=== PATIENT | male | born 1940 | race Asian ===

== ENCOUNTER 2019-02-16 14:25 | Inpatient (IN) | payer OTHER, MEDICARE ==
[~2019-02-16] VITALS: Ht 170.2 cm; Wt 68.5 kg
[2019-02-16 14:39] VITALS: Ht 170.2 cm; Wt 68.5 kg
[2019-02-16 15:40] LABS: BASOPHIL % 0.9 % (0-2); PLATELET COUNT 182 x10^3mcL (130-400); RED CELL DISTRIBUTION WIDTH 13.4 % (11.5-14.5)
[2019-02-16 16:04] LABS: CALCIUM 8.3 mg/dL (8.5-10.1); CHLORIDE SERUM 103 mmol/L (98-107); CREATININE SERUM 1.8 mg/dL (0.7-1.3); GLUCOSE SERUM 177 mg/dL (74-106); SODIUM SERUM 138 mmol/L (136-145)
[2019-02-16 16:09] LABS: ALKALINE PHOSPHATASE 76 U/L (46-116); ALT/SGPT 52 U/L (16-63); AST/SGOT 50 U/L (15-37); BILIRUBIN TOTAL 1.9 mg/dL (0.20-1.00); TOTAL PROTEIN, SERUM 6.9 g/dL (6.4-8.2)
[2019-02-16 16:18] LABS: UA SPECIFIC GRAVITY 1.025 (1.005-1.035); microscopic required? YES; urine erythrocyte 1+ (NEGATIVE)
[2019-02-16 16:19] LABS: ALBUMIN 2.3 g/dL (3.4-5.0)
[2019-02-16 17:51] LABS: MAGNESIUM 2.3 mg/dL (1.8-2.4); PHOSPHOROUS 4.3 mg/dL (2.5-4.9)
[2019-02-16 18:28] VITALS: BP 131/75
[2019-02-16 20:59] VITALS: BP 129/65
[2019-02-16 21:52] LABS: AMPHETAMINE QUAL UR NONE DETECTED (See below)
[2019-02-17 05:18] VITALS: BP 139/78
[2019-02-17 06:39] LABS: BASOPHIL % 0.1 % (0-2); PLATELET COUNT 190 x10^3mcL (130-400)
[2019-02-17 07:03] LABS: CALCIUM 7.8 mg/dL (8.5-10.1); CARBON DIOXIDE 22.9 mmol/L (21-32); CHLORIDE SERUM 106 mmol/L (98-107); CREATININE SERUM 1.4 mg/dL (0.7-1.3); GLUCOSE SERUM 62 mg/dL (74-106); MAGNESIUM 1.9 mg/dL (1.8-2.4); POTASSIUM SERUM 3.6 mmol/L (3.5-5.1); SODIUM SERUM 140 mmol/L (136-145)
[2019-02-17] MEDS ORDERED: DONEPEZIL HYDRO10 M2 PO (08:38)
[2019-02-17] MEDS ORDERED: SIMVASTATIN10 M1 PO (08:39)
[2019-02-17] MEDS ORDERED: NOR5 PO (08:39)
[2019-02-17] MEDS ORDERED: ALLOPURINOL100 MG PO (08:40)
[2019-02-17 08:54] VITALS: BP 135/73
[2019-02-17 12:39] VITALS: BP 140/84
[2019-02-17 16:51] VITALS: BP 127/70
[2019-02-17 20:30] VITALS: BP 121/61
[2019-02-18 06:38] VITALS: BP 157/82
[2019-02-18 07:11] LABS: BASOPHIL % 0.2 % (0-2); PLATELET COUNT 226 x10^3mcL (130-400); RED CELL DISTRIBUTION WIDTH 13.3 % (11.5-14.5)
[2019-02-18 07:33] LABS: CALCIUM 8.6 mg/dL (8.5-10.1); CARBON DIOXIDE 23.4 mmol/L (21-32); CHLORIDE SERUM 105 mmol/L (98-107); CREATININE SERUM 1.4 mg/dL (0.7-1.3); GLUCOSE SERUM 168 mg/dL (74-106); PHOSPHOROUS 3.1 mg/dL (2.5-4.9); POTASSIUM SERUM 3.8 mmol/L (3.5-5.1); SODIUM SERUM 141 mmol/L (136-145)
[2019-02-18 08:58] VITALS: BP 121/70
[2019-02-18 13:48] VITALS: BP 136/67
[2019-02-18 16:44] VITALS: BP 128/66
[2019-02-18 21:11] VITALS: BP 126/70
[2019-02-19 06:00] VITALS: BP 137/77
[2019-02-19 07:33] VITALS: BP 137/74
[2019-02-19 07:51] LABS: BASOPHIL % 0.4 % (0-2); PLATELET COUNT 241 x10^3mcL (130-400)
[2019-02-19 08:14] LABS: CALCIUM 8.2 mg/dL (8.5-10.1); CARBON DIOXIDE 22.5 mmol/L (21-32); CHLORIDE SERUM 105 mmol/L (98-107); CREATININE SERUM 1.4 mg/dL (0.7-1.3); GLUCOSE SERUM 125 mg/dL (74-106); POTASSIUM SERUM 3.6 mmol/L (3.5-5.1); SODIUM SERUM 140 mmol/L (136-145)
[2019-02-19 12:34] VITALS: BP 147/85
[2019-02-19 13:26] VITALS: BP 147/85
[2019-02-19 16:38] VITALS: BP 131/65
[2019-02-19 19:14] VITALS: BP 134/72
[2019-02-20 05:49] VITALS: BP 143/86
[2019-02-20 07:07] LABS: BASOPHIL % 0.3 % (0-2); PLATELET COUNT 244 x10^3mcL (130-400); RED CELL DISTRIBUTION WIDTH 13.5 % (11.5-14.5)
[2019-02-20 07:24] VITALS: BP 123/74
[2019-02-20 07:29] LABS: CALCIUM 8.4 mg/dL (8.5-10.1); CARBON DIOXIDE 24.1 mmol/L (21-32); CHLORIDE SERUM 107 mmol/L (98-107); CREATININE SERUM 1.5 mg/dL (0.7-1.3); GLUCOSE SERUM 119 mg/dL (74-106); POTASSIUM SERUM 3.5 mmol/L (3.5-5.1); SODIUM SERUM 142 mmol/L (136-145)
[2019-02-20] MEDS ORDERED: ZOSYN2.25 GM/50 IV (11:45)
[2019-02-20 12:00] VITALS: BP 129/70
[2019-02-20 14:45] VITALS: BP 129/70
[2019-02-20 15:59] VITALS: BP 113/60
== END 2019-02-20 21:34 | DRG 133 ==
LOC: ED 14:25 → MU 17:04 → DU 17:04 → MU 23:48 → DU 02-17 04:48
PROVIDERS: Emergency Medicine; Internal Medicine; ADMIT Internal Medicine
DX: J96.01 Acute respiratory failure with hypoxia (principal); E43 Unspecified severe protein-calorie malnutrition; N17.9 Acute kidney failure, unspecified; G93.41 Metabolic encephalopathy; J18.9 Pneumonia, unspecified organism; E11.22 Type 2 diabetes mellitus with diabetic chronic kidney disease; G30.9 Alzheimer's disease, unspecified; N18.3 Chronic kidney disease, stage 3 (moderate); F02.80 Dementia in other diseases classified elsewhere, unspecified severity, without behavioral disturbance, psychotic disturbance, mood disturbance, and anxiety; I12.9 Hypertensive chronic kidney disease with stage 1 through stage 4 chronic kidney disease, or unspecified chronic kidney disease; E78.00 Pure hypercholesterolemia, unspecified; E83.51 Hypocalcemia; Z68.24 Body mass index [BMI] 24.0-24.9, adult
CPT/HCPCS: 82962; 83880; 87804; 90658; 90732; 92610-GN; 97116-GP; 97530-GP; G0378; J0456; J0696; J1815; J1956; J2543; J3490; J7030; J7620; Q0092